=== PATIENT | male | born 1980 | race Caucasian/White ===

== ENCOUNTER 2022-11-19 16:28 | Emergency (ER) | payer OTHER ==
[~2022-11-19] VITALS: Ht 175.3 cm; Wt 117.9 kg
[2022-11-19 16:33] VITALS: BP_SYST 136
--- NOTE | 2022-11-19 16:40 | NUR ---
Pt brought by self, A&Ox4, pt presents to ER with cough, congestion, wheezing, skin pink and warm , cap refill <3, VSS.
[2022-11-19] MEDS ORDERED: ALBUTEROL SULFATE 0.083% 2.5 MG/3 ML VIAL.NEB INH ONE ×2 (16:45→21:45)
--- NOTE | 2022-11-19 17:10 | NUR ---
Dr Kemp evaluating patient at bedside
[2022-11-19] MEDS ORDERED: guaiFENesin/DEXTROMETHORPHAN 10 ML UDC PO ONE ×2 (17:30→21:45)
--- NOTE | 2022-11-19 17:30 | NUR ---
RT given breathing treatment in the triage room
[2022-11-19] MEDS ORDERED: IPRATROPIUM BROM 0.5 MG/2.5 ML VIAL.NEB (ATROVENT) INH ONE (21:45)
[2022-11-19] MEDS ORDERED: KETOROLAC TROMETHAMINE 60 MG/2 ML VIAL IM ONE (21:45)
[2022-11-19] MEDS ORDERED: BENZONATATE 100 MG CAPSULE (TESSALON) PO ONE (21:45)
[2022-11-19] MEDS ORDERED: cefTRIAXone 1 GM VIAL IM ONE (21:45)
[2022-11-19] MEDS ORDERED: BENZ150C4 PO (21:48)
[2022-11-19] MEDS ORDERED: AUG875 PO (21:48)
[2022-11-19] MEDS ORDERED: ALBMDI INH (21:48)
[2022-11-19] MEDS ORDERED: IBUP-1971 PO (21:48)
--- NOTE | 2022-11-19 21:58 | NUR ---
BROUGHT INTO BED #4 FROM OUTSIDE TRIAGE TENT. WITH PT.
[2022-11-19] MEDS ORDERED: LIDOCAINE 1%, 20 ML MDV 20 ML ONE (22:03)
[2022-11-19] MEDS ORDERED: guaiFENesin/DEXTROMETHORPHAN 10 ML UDC ONE (22:07)
[2022-11-19 23:36] VITALS: BP_SYST 136
--- NOTE | 2022-11-19 23:36 | NUR ---
Patient given written and verbal discharge instructions and verbalizes understanding. ER MD discussed with patient the results and treatment provided. Patient in stable condition. ID arm band removed. Rx of Augmentin ,Albuterol and Ibuprofen given. Patient educated on pain management and to follow up with PMD. Pain Scale 2/10 . Opportunity for questions provided and answered. Medication side effect fact sheet provided.
== END 2022-11-19 23:36 | disposition home or self-care (01) ==
LOC: SED 16:28
DX: J18.8 Other pneumonia, unspecified organism (principal); R05.9 Cough, unspecified; J45.909 Unspecified asthma, uncomplicated; Z88.0 Allergy status to penicillin; Z88.6 Allergy status to analgesic agent; Z79.899 Other long term (current) drug therapy; Z20.822 Contact with and (suspected) exposure to COVID-19
CPT/HCPCS: 36415; 94640; 94760; 99284; 96372; 87804 ×2; 87426; J0696; J1885; J2001; J7613